=== PATIENT | female | born 1975 | race Caucasian/White ===

== ENCOUNTER 2017-07-15 06:22 | Inpatient (IN) | payer BC ==
--- NOTE | 2017-07-09 11:57 | HP ---
Admitting History and Physical - Primary Care Physician PCP: Yobani Lo - Admission Chief Complaint: Left breast cancer with axillary node metastatic disease History of Present Illness: 41 year old premanapausal female with strong family H/O breast and ovarian cancer. She had a H/O bilateral breast augmentations with implants originally placed 1995 with exchange 2003 due to ruptures. The patient noticed a density towards the lateral aspect of left breast around 12/2016. mammogram and US showed suspicious left retroareolar calcifications and mutiple suspicious densities. 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 , left breast 2:00and 9:00 bx turned out to be benign. Breast MRI showed exstensive enhancement left breast , right negative She is S/P neoadjuvant chemotherapy. 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 06/2017 repeat breast MRI showed right breast birad 3 residual parenchymal enhancement, known residual enhancement left 3:00 retroareolar region birad 6 area of cancer , small residual enhancement 9:00 previously bx region, and decrease size of axillary node. 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 - Past Surgical History Past Surgical History: Yes: Hernia Repair (umbilical hernia incarcerated at 14 Bilateral breast augmentation 1995 replaced 2003 for ruptures bilateral myringotomies 1977) - Smoking History Smoking history: Former smoker Have you smoked in the past 12 months: Yes Aproximately how many cigarettes per day: 1 - Alcohol/Substance Use Hx Alcohol Use: Yes (socially) Home Medications - Allergies Allergies/Adverse Reactions: Allergies Allergy/AdvReac Type Severity Reaction Status Date / Time Penicillins Allergy Verified 07/09/17 12:02 silver Allergy Verified 07/09/17 12:03 [From Tegaderm AG Mesh] - Home Medications Home Medications (free text): proair HFA inhaler Family Disease History - Family Disease History Other Family History: mat 2nd cousin breast ca late 40's. mat [place] ovarian ca. mat GF CRC skin ca. mat GA mouth and throat ca. pat GF CRC. mat GA skin ca. mat x4 esophageal ca. pat [place] uterine ca cervical ca. pat lung ca Physical Examination Constitutional: Yes: Well Nourished Breast(s): Yes: Other (obviosus bilateral augmentation with ptotic D cup breast , on palpitation no longer canc feel any suspicious densities in left breast or axilla, right breast negative) Problem List - Problems (1) Breast cancer, left Code(s): C50.912 - MALIGNANT NEOPLASM OF UNSPECIFIED SITE OF LEFT FEMALE BREAST Qualifiers: Breast location: upper outer quadrant of breast Patient sex: female Assessment/Plan Bilateral mastectomies with left sentenel node biopsy, lymphoscintogram posssible axillary node dissection, needle localization x2 of left axillary nodes with reconstruction
[2017-07-10 10:31] VITALS: BMI 26.3
[2017-07-15] MEDS ORDERED: SCOPOLAMINE HYDROBROMIDE 1 PATCH PATCH.TD72 ONE (14:01)
[2017-07-15] MEDS ORDERED: DEXAMETHASONE SOD PHOSPHATE/PF 10 MG/ML SDV ONE (14:08)
[2017-07-15] MEDS ORDERED: MIDAZOLAM HCL 2 MG/2 ML SINGLE DOSE VIAL ONE (14:08)
[2017-07-15] MEDS ORDERED: BUPIVACAINE HCL/PF 2.5 MG/ML - 30 ML VIAL IJ ONE (14:09)
[2017-07-15] MEDS ORDERED: ceFAZolin SODIUM 1 GM VIAL ONE ×2 (14:15→15:08)
[2017-07-15] MEDS ORDERED: ISOSULFAN BLUE 10 MG/ML VIAL SQ ONE (14:16)
[2017-07-15] MEDS ORDERED: GENTAMICIN SO4 80 MG/2 ML VIAL ONE (14:16)
[2017-07-15] MEDS ORDERED: ONDANSETRON 4 MG/2 ML VIAL IVPUSH PRN ×2 (14:42→19:05)
[2017-07-15] MEDS ORDERED: ACETAMINOPHEN 325 MG TABLET (FP) PO PRN (14:42)
[2017-07-15] MEDS ORDERED: ZOLPIDEM TARTRATE 5 MG TABLET PO PRN (14:42)
[2017-07-15] MEDS ORDERED: HYDROmorphone HCL/PF 1 MG/ML VIAL (FOR PYXIS CHARGING ONLY) ONE ×2 (14:57)
[2017-07-15] MEDS ORDERED: PROPOFOL 20 ML ONE ×4 (14:57)
[2017-07-15] MEDS ORDERED: ROCURONIUM BROMIDE 50 MG/5 ML VIAL ONE (14:58)
[2017-07-15] MEDS ORDERED: SUCCINYLCHOLINE CHLORIDE 200 MG/10 ML VIAL ONE (14:58)
[2017-07-15] MEDS ORDERED: LIDOCAINE HCL 2% 100 MG/5 ML DISP.SYRIN ONE (15:04)
[2017-07-15] MEDS ORDERED: ONDANSETRON 4 MG/2 ML VIAL ONE ×3 (15:08→19:34)
[2017-07-15] MEDS ORDERED: DEXAMETHASONE SOD PHOSPHATE 4 MG/1 ML VIAL ONE ×2 (15:08→18:24)
--- NOTE | 2017-07-15 18:41 | OP ---
Operative Note - Note: Operative Date: 07/15/17 Pre-Operative Diagnosis: left breast cancer Operation: bilateral mastectomy with left sentinel lymph node biopsy, bilateral breast reconstruction with alloderm/tissue expanders Surgeon: Tera Rosales Ios Programmer: Fina Nevarez Anesthesiologist/GENERAL NEUROLOGIST: Jhonny Zee Anesthesia: General Estimated Blood Loss (mls): 100 Drains & Tubes with Location: 19French blakmore drains Fluid Volume Replaced (mls): 900 Operative Report Dictated: Yes
[2017-07-15] MEDS: FAMOTIDINE 20 MG TABLET PO SCH (21:53)
[2017-07-15] MEDS: PANTOPRAZOLE 20 MG TABLET (FP) PO SCH (21:53)
[2017-07-15] MEDS: diazePAM 5 MG TABLET PO SCH (21:54)
[2017-07-15] MEDS: traMADol HCL 50 MG TABLET PO SCH (22:25)
[2017-07-16] MEDS: CLINDAMYCIN 300 MG PREMIX IVPB 300 MG/50 ML BAG IVPB SCH ×4 (02:12→17:04)
[2017-07-16] MEDS: traMADol HCL 50 MG TABLET PO SCH ×5 (03:11→21:56)
[2017-07-16] MEDS: oxyCODONE HCL 5 MG TABLET PO PRN ×6 (03:11→20:49)
[2017-07-16] MEDS: ACETAMINOPHEN 325 MG TABLET (FP) PO SCH ×5 (03:12→17:04)
--- NOTE | 2017-07-16 06:57 | OP ---
DATE OF OPERATION: 07/15/2017 PREOPERATIVE DIAGNOSIS: Left breast multicentric breast cancer. POSTOPERATIVE DIAGNOSIS: Left breast multicentric breast cancer. PROCEDURE PERFORMED: Bilateral total mastectomies through a Knight reduction pattern incision with left axillary sentinel lymph node biopsy and bilateral nitroglycerin distributor reconstruction and AlloDerm. PRIMARY SURGEON: Jesus Powell M.D. EARLY CHILDHOOD SPECIAL EDUCATOR: ROBERT Astudillo Primary surgeon for the bilateral nitroglycerin distributor reconstruction and AlloDerm is Dr. Jesus Rosales, with his health assistant ROBERT Harden. ANESTHESIA: General endotracheal anesthesia. ESTIMATED BLOOD LOSS: About 120 mL. COMPLICATIONS: There were no complications. INDICATIONS: Briefly, the patient is a 41-year-old , premenopausal white female with a strong family history with her maternal great aunt who from ovarian cancer and her maternal 2nd cousin who had breast cancer in her late 40s. There is also other cancer in the family. The patient was found to have suspicious findings in the lateral left breast in December 2016, and has a history of bilateral augmentation implants. There were multiple densities in the left breast at the 2 and 3 o'clock regions, as well as a suspicious left axillary lymph node. The left breast biopsies came back with invasive duct cancer, and she was found to have metastatic lower left axillary lymph node and also an intramammary lymph node towards the upper outer aspect of the left breast, which were both biopsied and positive for metastatic disease. MRI showed extensive cancer in the left breast, but the right breast was negative. The cancer was ER positive, MN negative and HER-II/DAKOTA positive, and she underwent neoadjuvant chemotherapy with TCHP, and followup MRI just showed some minimal residual enhancement to the left breast 3 and 9 o'clock regions. The patient was advised on undergoing a mastectomy on the left side, and due to the proximity to the nipple was advised to remove the nipple and decided to undergo prophylactic total mastectomy on the right side at the same sitting. She was advised of the need for a sentinel lymph node biopsy and possible axillary lymph node dissection. She was seen by the plastic surgeon preoperatively, and decided to go forward with bilateral nitroglycerin distributor reconstructions since she will need radiation on the left chest wall postoperatively. DESCRIPTION OF PROCEDURE: The patient was brought in for the procedure on July 15, 2017. She underwent lymphoscintigraphy at [facility] prior to the surgery, with periareolar injections of technetium-99. She had needle localizations of the intramammary and left lower axillary lymph node, which had been biopsied prior to the chemotherapy. She was then brought to the [place] holding area, and in the holding area, site verification was made and informed consent was obtained. She was seen by Dr. Rosales, who marked the patient preoperatively. She underwent bilateral prepectoral nerve blocks for postoperative pain control, and was brought into the operating room and laid on the OR table in the supine position. Venodynes were placed on the lower extremities prior to induction. She did receive 1 g of Ancef prior to incision, with the KNOWN PENICILLIN ALLERGY, but had no reaction. She was given general endotracheal anesthesia. Both breasts were sterilely prepped and draped in the usual fashion. Then 3 mL of Lymphazurin blue was injected intradermally, around the periareolar region of the left breast nipple-areolar complex. The sentinel lymph node biopsy was first performed. We first remained the intramammary lymph node with needle localization towards the upper outer aspect of the left breast over the implant. This was removed with the wire intact. Specimen radiograph showed removal of the clip in question, and frozen section of this came back with just benign breast tissue with no huma seen anymore. An incision was made just below the hair-bearing area of the left axilla at this point, and dissection was undertaken, and the wire was removed with the surrounding lymph nodes, but specimen radiograph did not show any clip in that initial specimen. These had no significant radioactive count and were sent to Pathology as non-sentinel lymph nodes, in formalin. Using the Navigator probe, I was able to find 2 other hot nodes, labeled sentinel lymph node number 2 and 3, with 10-second gamma counts of 2513 and 4111. The 3rd specimen did have the clip, which was seen within the node. All 3 sentinel nodes were sent for frozen section and came back negative. No other blue or hot nodes were found and background count was 46 after removal of these 3 sentinel nodes and the non-sentinel lymph nodes. Hemostasis was achieved. At this point the left mastectomy was performed through a Knight-pattern reduction incision, removing the nipple-areolar complex. Skin flaps were raised superiorly to the level of the clavicle, medially to the level of the sternum, laterally to the level of the latissimus and inferiorly below the level of the inframammary fold. The breast was taken off the pectoralis major muscle, after removing the prior augmentation implant. Electrocautery was used to remove the breast off the muscle from inferomedial to superolateral. It was completely removed intact and oriented with a long-lateral and short-superior surgery. Specimen radiograph of the breast showed removal of the remaining clips in the left breast. A separate anterior margin was taken just on the upper skin flap and sent to Pathology as anterior margin with suture marking the biopsy cavity side. Hemostasis was achieved and the wound was copiously irrigated with warm sterile saline. The breast was placed in formalin, after the specimen radiograph, to be sent to Pathology. At this point, gloves, gowns and instruments were changed, and the right breast was approached. Again, using a Knight-pattern reduction mastopexy incision, the nipple-areolar complex was completely removed and a skin flap was raised superiorly to the level of the clavicle, medially to the level of the sternum, laterally to the level of the latissimus and inferiorly below the level of the inframammary fold. The breast was taken down off the pectoralis major muscle, after removing the prior augmentation implant. The breast was taken down off the muscle from inferior-medial to superior-lateral, using electrocautery. The specimen with the breast and nipple was removed and oriented with a long-lateral and short-superior suture, and weighed to allow for an appropriate cosmetic result, placed in formalin and sent to Pathology as "right total mastectomy." Hemostasis was achieved and the wound was copiously irrigated with warm sterile saline. At this point Dr. Rosales became the primary surgeon for the bilateral augmentation implants placed in the subpectoral location using AlloDerm to allow for ease in expansion. Two Shane drains were placed around each implant, one on each side, and brought through separate stab incisions on the lateral skin flap and secured in place using 3-0 nylon suture. The wounds were all closed by Plastic Surgery using interrupted 3-0 deep dermal PDS suture and a running 4-0 subcuticular PDS suture. The axillary wound was closed in a similar fashion, and Dermabond was placed over the skin, since SHE HAD AN ADHESIVE ALLERGY. Compressive dressing and bra were placed over the patient. We did use the Spy skin perfusion device, which showed good bilateral skin perfusion after the mastectomy as well as after the implant reconstruction. The patient was extubated at the end of the case and brought to the postanesthesia care unit in stable condition. She will be admitted postoperatively for pain management and wound management. Estimated blood loss was about 120 mL, and she was hemodynamically stable throughout. JESUS POWELL M.D. [id number]
[2017-07-16] MEDS: HEPARIN NA (PORCINE) 5,000 UNITS/ML 1ML VIAL SQ SCH ×2 (07:52→20:49)
[2017-07-16] MEDS: DEXTROSE 5%-0.45% SALINE 1,000 ML IV SCH ×2 (08:26→15:21)
[2017-07-16] MEDS: LACTATED RINGERS SOLUTION 1,000 ML IV SCH ×2 (08:26→20:42)
[2017-07-16 09:00] LABS: HEMATOCRIT 32.3 % (32.4-45.2); HEMOGLOBIN 10.9 GM/dl (10.7-15.3); MCH 35.1 pg (25.7-33.7); MCHC 33.9 g/dl (32.0-36.0); MEAN CELL VOLUME 103.5 fl (80-96); MEAN PLT VOLUME 7.3 fl (7.5-11.1); PLATELET COUNT 210 K/MM3 (134-434); RBC 3.12 M/mm3 (3.60-5.2); RDW 12.7 % (11.6-15.6); WHITE BLOOD COUNT 4.9 K/mm3 (4.0-10.8)
[2017-07-16] MEDS: diazePAM 5 MG TABLET PO SCH ×2 (09:08→21:55)
[2017-07-16] MEDS: PANTOPRAZOLE 20 MG TABLET (FP) PO SCH ×2 (09:09→21:57)
[2017-07-16] MEDS: FAMOTIDINE 20 MG TABLET PO SCH ×2 (09:10→21:57)
--- NOTE | 2017-07-16 09:12 | PN ---
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 POD #1 History of Present Illness: patient is eating, no nausea or vomiting,pain managed with currrent protocol - Current Medication List Current Medications: Active Medications Acetaminophen (Tylenol -) 650 mg PO Q6HPO [facility] Last Admin: 07/16/17 08:26 Dose: Not Given Diazepam (Valium -) 5 mg PO BID [facility] Last Admin: 07/15/17 21:54 Dose: Not Given Famotidine (Pepcid -) 20 mg PO BID [facility] Last Admin: 07/15/17 21:53 Dose: 20 mg Heparin Sodium (Porcine) (Heparin -) 5,000 unit SQ BID@0800,2000 [facility] Last Admin: 07/16/17 07:52 Dose: 5,000 unit Dextrose/Sodium Chloride (D5-1/2ns -) 1,000 mls @ 100 mls/hr IV ASDIR [facility] Last Admin: 07/16/17 08:26 Dose: Not Given Clindamycin Phosphate (Cleocin 300 Mg Premix Ivpb) 300 mg in 50 mls @ 100 mls/ hr IVPB Q8H-IV [facility] Last Admin: 07/16/17 08:26 Dose: Not Given Lactated Ringer's (Lactated Ringers Solution) 1,000 mls @ 75 mls/hr IV ASDIR [facility] Last Admin: 07/16/17 08:26 Dose: Not Given Ondansetron HCl (Zofran Injection) 4 mg IVPUSH Q6H PRN PRN Reason: NAUSEA AND/OR VOMITING Oxycodone HCl (Roxicodone -) 5 mg PO Q4H PRN PRN Reason: PAIN LEVEL 1-5 Last Admin: 07/16/17 07:47 Dose: 5 mg Oxycodone HCl (Roxicodone -) 10 mg PO Q4H PRN PRN Reason: PAIN LEVEL 6-10 Pantoprazole Sodium (Protonix -) 20 mg PO BID [facility] Last Admin: 07/15/17 21:53 Dose: 20 mg Tramadol HCl (Ultram -) 50 mg PO Q6H [facility] Last Admin: 07/16/17 08:25 Dose: Not Given Zolpidem Tartrate (Ambien -) 5 mg PO HS PRN PRN Reason: Insomnia - Objective Vital Signs: Vital Signs Temperature 98.3 F 07/16/17 04:00 Pulse Rate 57 L 07/16/17 04:00 Respiratory Rate 18 07/16/17 04:00 Blood Pressure 99/54 07/16/17 04:00 O2 Sat by Pulse Oximetry (%) 100 07/16/17 08:03 Constitutional: Yes: No Distress Breast(s): Yes: Other (Flaps viable incision intact drains inplace and funtioning some echymosis bilaterally) Problem List - Problems (1) Breast cancer, left Code(s): C50.912 - MALIGNANT NEOPLASM OF UNSPECIFIED SITE OF LEFT FEMALE BREAST Qualifiers: Breast location: upper outer quadrant of breast Patient sex: female Assessment/Plan continue current pain management protocol spirometry OOb SCD whiile in bed ,heparin SQ IV antibiotics Plan for discharge tomorrow CBC pending
--- NOTE | 2017-07-16 12:06 | PN ---
Progress Note, Physician Chief Complaint: Pt. pain controlled, no GA complaints. - Current Medication List Current Medications: Active Medications Acetaminophen (Tylenol -) 650 mg PO Q6HPO [facility] Last Admin: 07/16/17 11:42 Dose: 650 mg Diazepam (Valium -) 5 mg PO BID [facility] Last Admin: 07/16/17 09:08 Dose: 5 mg Famotidine (Pepcid -) 20 mg PO BID [facility] Last Admin: 07/16/17 09:10 Dose: 20 mg Heparin Sodium (Porcine) (Heparin -) 5,000 unit SQ BID@0800,2000 [facility] Last Admin: 07/16/17 07:52 Dose: 5,000 unit Dextrose/Sodium Chloride (D5-1/2ns -) 1,000 mls @ 100 mls/hr IV ASDIR [facility] Last Admin: 07/16/17 08:26 Dose: Not Given Clindamycin Phosphate (Cleocin 300 Mg Premix Ivpb) 300 mg in 50 mls @ 100 mls/ hr IVPB Q8H-IV [facility] Last Admin: 07/16/17 09:09 Dose: 100 mls/hr Lactated Ringer's (Lactated Ringers Solution) 1,000 mls @ 75 mls/hr IV ASDIR [facility] Last Admin: 07/16/17 08:26 Dose: Not Given Ondansetron HCl (Zofran Injection) 4 mg IVPUSH Q6H PRN PRN Reason: NAUSEA AND/OR VOMITING Oxycodone HCl (Roxicodone -) 5 mg PO Q4H PRN PRN Reason: PAIN LEVEL 1-5 Last Admin: 07/16/17 07:47 Dose: 5 mg Oxycodone HCl (Roxicodone -) 10 mg PO Q4H PRN PRN Reason: PAIN LEVEL 6-10 Last Admin: 07/16/17 11:46 Dose: 10 mg Pantoprazole Sodium (Protonix -) 20 mg PO BID [facility] Last Admin: 07/16/17 09:09 Dose: 20 mg Tramadol HCl (Ultram -) 50 mg PO Q6H [facility] Last Admin: 07/16/17 09:08 Dose: 50 mg Zolpidem Tartrate (Ambien -) 5 mg PO HS PRN PRN Reason: Insomnia - Objective Vital Signs: Vital Signs Temperature 98.3 F 07/16/17 04:00 Pulse Rate 57 L 07/16/17 04:00 Respiratory Rate 18 07/16/17 04:00 Blood Pressure 99/54 07/16/17 04:00 O2 Sat by Pulse Oximetry (%) 100 07/16/17 08:03 Constitutional: Yes: Well Nourished, No Distress, Calm Musculoskeletal: Yes: WNL Neurological: Yes: WNL, Alert, Oriented Labs: CBC, BMP 07/16/17 07:50 Assessment/Plan POD#1 s/p bilateral breast mastectomy under GA with PEC blocks. Doing well. D/C from anesthesia care.
--- NOTE | 2017-07-16 15:00 | SURG ---
Surgery Recreational Counselor Note Recreational Counselor: Fina Nevarez PA-C Date of Service: 07/15/17 Diagnosis: left breast cancer Procedure: bilateral mastectomy with left sentinel lymph node biopsy, bilateral breast reconstruction with alloderm/tissue gatehouse attendant I was present for the entirety of the operative procedure. For further detail, please refer to operative report. Visit type - Case Type Case Type: Scheduled Admission - Emergency Emergency Visit: No - New patient This patient is new to me today: Yes Date on this admission: 07/15/17
[2017-07-16] MEDS ORDERED: diphenhydrAMINE HCL 25 MG CAPSULE (FP) PO SCH (22:00)
[2017-07-17] MEDS: ACETAMINOPHEN 325 MG TABLET (FP) PO SCH ×2 (02:40→06:32)
[2017-07-17] MEDS: oxyCODONE HCL 5 MG TABLET PO PRN ×3 (02:41→10:59)
[2017-07-17] MEDS: CLINDAMYCIN 300 MG PREMIX IVPB 300 MG/50 ML BAG IVPB SCH ×2 (02:42→09:27)
[2017-07-17] MEDS: traMADol HCL 50 MG TABLET PO SCH ×2 (02:49→09:26)
[2017-07-17 06:52] VITALS: BP 91/55; PULSE 68; TEMP 98.9
[2017-07-17] MEDS: HEPARIN NA (PORCINE) 5,000 UNITS/ML 1ML VIAL SQ SCH (08:00)
[2017-07-17] MEDS: PANTOPRAZOLE 20 MG TABLET (FP) PO SCH (09:27)
[2017-07-17] MEDS: diazePAM 5 MG TABLET PO SCH (09:27)
[2017-07-17] MEDS: FAMOTIDINE 20 MG TABLET PO SCH (09:27)
--- NOTE | 2017-07-17 09:36 | PN ---
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#2 History of Present Illness: patient is using valium and oxycodone for pain eating no nausea OOb, ready for discharge today - Current Medication List Current Medications: Active Medications Acetaminophen (Tylenol -) 650 mg PO Q6HPO [facility] Last Admin: 07/17/17 06:32 Dose: 650 mg Diazepam (Valium -) 5 mg PO BID [facility] Last Admin: 07/17/17 09:27 Dose: 5 mg Diphenhydramine HCl (Benadryl -) 25 mg PO HS [facility] Last Admin: 07/16/17 21:55 Dose: 25 mg Famotidine (Pepcid -) 20 mg PO BID [facility] Last Admin: 07/17/17 09:27 Dose: 20 mg Heparin Sodium (Porcine) (Heparin -) 5,000 unit SQ BID@0800,2000 [facility] Last Admin: 07/16/17 20:49 Dose: 5,000 unit Dextrose/Sodium Chloride (D5-1/2ns -) 1,000 mls @ 100 mls/hr IV ASDIR [facility] Last Admin: 07/16/17 15:21 Dose: Not Given Clindamycin Phosphate (Cleocin 300 Mg Premix Ivpb) 300 mg in 50 mls @ 100 mls/ hr IVPB Q8H-IV [facility] Last Admin: 07/17/17 09:27 Dose: 100 mls/hr Lactated Ringer's (Lactated Ringers Solution) 1,000 mls @ 75 mls/hr IV ASDIR [facility] Last Admin: 07/16/17 20:42 Dose: Not Given Ondansetron HCl (Zofran Injection) 4 mg IVPUSH Q6H PRN PRN Reason: NAUSEA AND/OR VOMITING Oxycodone HCl (Roxicodone -) 5 mg PO Q4H PRN PRN Reason: PAIN LEVEL 1-5 Last Admin: 07/16/17 07:47 Dose: 5 mg Oxycodone HCl (Roxicodone -) 10 mg PO Q4H PRN PRN Reason: PAIN LEVEL 6-10 Last Admin: 07/17/17 06:32 Dose: 10 mg Pantoprazole Sodium (Protonix -) 20 mg PO BID [facility] Last Admin: 07/17/17 09:27 Dose: 20 mg Tramadol HCl (Ultram -) 50 mg PO Q6H [facility] Last Admin: 07/17/17 09:26 Dose: 50 mg Zolpidem Tartrate (Ambien -) 5 mg PO HS PRN PRN Reason: Insomnia - Objective Vital Signs: Vital Signs Temperature 98.9 F 07/17/17 06:00 Pulse Rate 68 07/17/17 06:00 Respiratory Rate 18 07/17/17 06:00 Blood Pressure 91/55 07/17/17 06:00 O2 Sat by Pulse Oximetry (%) 97 07/17/17 06:00 Constitutional: Yes: Well Nourished Breast(s): Yes: Other (flaps viable bilaterally incision intact,ADRIEN drains functioning dressing changed no infection or drainage some echymosis bilaterally ) Labs: CBC, BMP 07/16/17 07:50 Problem List - Problems (1) Breast cancer, left Code(s): C50.912 - MALIGNANT NEOPLASM OF UNSPECIFIED SITE OF LEFT FEMALE BREAST Qualifiers: Breast location: upper outer quadrant of breast Patient sex: female Assessment/Plan patient ready for discharge today follow up next week with Dr Rosales and Dr Wally mendoza showchloe cipro BID VNS
--- NOTE | 2017-07-17 09:43 | DS ---
Physical Examination Vital Signs: Vital Signs Temperature 98.9 F 07/17/17 06:00 Pulse Rate 68 07/17/17 06:00 Respiratory Rate 18 07/17/17 06:00 Blood Pressure 91/55 07/17/17 06:00 O2 Sat by Pulse Oximetry (%) 97 07/17/17 06:00 Constitutional: Yes: No Distress Breast(s): Yes: Other (bilateral flaps viable incision intact derrek drains functioning no infection or drainage) Labs: CBC, BMP 07/16/17 07:50 Discharge Summary Reason For Visit: LEFT BREAST CA Condition: Good - Instructions Diet, Activity, Other Instructions: Post Operative Instructions - [facility] We hope your recovery will be uneventful. For those of you who have been given general anesthesia, there is a possibility you might have some lightheadedness and possibly nausea. It is important that each patient, especially those who have had general anesthesia, follow these instructions, please: 1. Do NOT operate a motor vehicle for 24 hours. 2. Do NOT drink any alcoholic beverages for 24 hours. 3. Do NOT take any sedatives, narcotics, or tranquilizers for 24 hours unless specifically ordered by your surgeon. 4. Do NOT undertake any strenuous exercise or outside activity for 24 hours unless specifically permitted by your surgeon. 5. Eat light foods that are easy to digest. If you have any problems with nausea and vomiting, lie down and rest. If it continues, call your surgeon. 6. Call your surgeon AT ONCE if you have problems with: a. Bleeding b. Urinating c. Excessive pain or drainage d. Numbness If any problems occur, call your physician first. If you cannot reach him/her, call the Ambulatory Surgery Unit at [phone], or the Emergency Room at . Follow up with Drs. Lo / Sridhar in 7 days. Medication: Vicodin E-S OR Percocet 1-2 tablets every 4-6 hrs as needed for 5-7 days. Wound Care: Keep wound dry and clean for 48 hours. You may remove the dressing after 48 hours and may shower. Keep steri-strips in place until follow-up appointment No heavy lifting or strenuous activities. BREAST SURGERY INSTRUCTIONS Lupillo Lo M.D., VALE Lo M.D., FACS Wilda Waller M.D., FACS 1. Please call the office at to make a follow up appointment with your surgeon. This number can be also used for any urgent issues you may have. 2. Call us immediately if any of the following occur: *Bleeding from the incision or drain site (a small amount is normal) *Fever or chills *Redness and worsening tenderness around the surgical site *Drainage of pus or fluid from the incision or drain site 3. You may change the surgical dressing two (2) days after your surgery, and may shower then. If you have drains, you may shower after they have been removed, until then take a sponge bath. 4. It is normal for there to be some bruising and tenderness around the surgical site, and the breast may also be firm in this area. 5. Please wear a comfortable bra (sports or surgical bra) all day and all night until your first follow-up visit with your surgeon. 6. The pain medicine you have been prescribed may make you constipated; make sure you drink plenty of water. You may use an over the counter laxative if needed. 7. You may resume your normal diet after surgery, although you may want to avoid rich foods for the first twenty-four (24) hours after surgery. Alcoholic drinks should be avoided while taking the prescribed pain medicine. 8. You may resume normal activities as long as there is no discomfort, but do not do upper body exercises until after your follow-up appointment. Do not lift anything heavier than a large phone book. You may resume driving once you have stopped taking the prescribed pain medicine and feel comfortable doing arm movements. NO SHOWER,WEAR BRA, EMPTY AND RECORD DERREK OUTPUT TWICE DAILY Referrals: Yobani Lo MD [Staff Physician] - Tera Rosales MD [Staff Physician] - Disposition: HOME - Home Medications Comprehensive Discharge Medication List: Ambulatory Orders Acetaminophen [Tylenol] 650 mg PO ASDIR PRN 07/10/17 Diphenhydramine [Benadryl Capsule -] 50 mg PO HS 07/10/17 Famotidine [Pepcid] 20 mg PO BID 07/10/17 Lansoprazole [Prevacid] 15 mg PO BID 07/10/17 Ciprofloxacin HCl [Cipro] 500 mg PO BID #20 tablet 07/17/17 Diazepam [Valium] 5 mg PO Q8H PRN #30 tablet MDD 3 07/17/17 Oxycodone HCl 5 mg PO Q4HWA PRN #30 tablet MDD 6 07/17/17
--- NOTE | 2017-07-18 19:20 | PATH ---
Surgical Pathology Report Patient Name: MARSHA MALCOLM Med. Rec. #: [id number] /Age/Gender: 1975 (Age: 41) / F Account: [id number] Location: [facility] Taken: 07/15/2017 Received: 07/15/2017 Reported: 07/18/2017 Physicians: Yobani Lo M.D. Specimen(s) Received A: LEFT BREAST SENTINAL NODE #1(299 COUNT) B: LEFT BREAST SENTINAL NODE #2 (2513 COUNT) C: LEFT BREAST SENTINAL NODE #3 (4117 count) D: LEFT BREAST NON SENTINAL NODES E: LEFT BREAST ANTERIORIOR MARGIN F: LEFT BREAST SUTURE MUSTAFA G: RIGHT BREAST SUTURE MUSTAFA H: BILATERAL BREAST IMPLANTS Clinical History Status post neoadjuvant chemotherapy, known positive lymph node pre-chemotherapy. Intraoperative Consult Diagnosis A. Left breast sentinel node #1, frozen section and touch prep: Benign breast tissue. No lymph node identified on major account representative frozen section or touch prep. Christian Lucas M.D., 07/15/2017 B. Left breast sentinel node #2, touch prep: Benign lymph node. Christian Lucas M.D., 07/15/2017 C. Left breast sentinel node #3, touch prep: Benign lymph node. Christian Lucas M.D., 07/15/2017 Final Diagnosis A. LYMPH NODE, LEFT AXILLARY SENTINEL #1 EXCISION: ONE BENIGN INTRAMAMMARY LYMPH NODE (0/1) BY STANDARD HEMATOXYLIN AND EOSIN STAIN (MULTIPLE LEVELS EXAMINED) AND AE1/3 IMMUNOSTAIN. AREA OF SCLEROSIS SUGGESTIVE OF PRIOR BIOPSY SITE OR RESOLVED TUMOR BED PRESENT. REMAINING BREAST TISSUE WITH FIBROCYSTIC CHANGES AND INCLUDES THE CHANGE, STROMAL FIBROSIS, DUCTAL DILATATION, AND CYSTIC APOCRINE METAPLASIA. B. LYMPH NODE, LEFT AXILLARY SENTINEL NODE #2, EXCISION: ONE BENIGN LYMPH NODE (0/1) BY STANDARD HEMATOXYLIN AND EOSIN STAIN (MULTIPLE LEVELS EXAMINED) AND AE1/3 IMMUNOSTAIN. C. LYMPH NODE, LEFT AXILLARY SENTINEL NODE #3, EXCISION: ONE BENIGN LYMPH NODE (0/1) BY STANDARD HEMATOXYLIN AND EOSIN STAIN (MULTIPLE LEVELS EXAMINED) AND AE1/3 IMMUNOSTAIN. D. LYMPH NODES, LEFT AXILLARY, EXCISION: NO METASTATIC CARCINOMA IDENTIFIED IN 12 LYMPH NODES (0/12). E. LEFT BREAST, ANTERIOR MARGIN, EXCISION: BENIGN FIBROFATTY TISSUE. F. LEFT BREAST, MASTECTOMY: BENIGN BREAST TISSUE WITH MULTIPLE FIBROADENOMATA, ALONG WITH FIBROCYSTIC CHANGES INCLUDING USUAL DUCTAL HYPERPLASIA, STROMAL FIBROSIS, DUCTAL DILATATION, AND CYSTIC AND CYSTIC APOCRINE METAPLASIA. FIBROUS TISSUE CONSISTENT WITH BREAST IMPLANT CAPSULE PRESENT. NO RESIDUAL CARCINOMA IDENTIFIED. G. RIGHT BREAST, MASTECTOMY: SCLEROSING ADENOSIS WITH ASSOCIATED CAUSE PATIENT, ARISING IN A BACKGROUND OF FIBROCYSTIC CHANGES INCLUDING COLUMNAR CELL CHANGE, FIBROADENOMATOID CHANGE, STROMAL FIBROSIS, DUCTAL DILATATION, AND ASSOCIATED CALCIFICATION. FIBROUS TISSUE CONSISTENT WITH BREAST IMPLANT CAPSULE PRESENT. H. SOLE POLISHER, BILATERAL BREAST, REMOVAL: TWO BREAST IMPLANTS (GROSS ONLY). Comment: Also see Slide Review [id number]. Comments Breast Invasive Carcinoma: Surgical Pathology Cancer Case Summary Based on AJCC/UICC TNM, 7th edition Procedure _X__ Total mastectomy (including nipple and skin) Lymph Node Sampling (select all that apply) (required only if lymph nodes are present in the specimen) _X__ [place] lymph node(s) _X__ Axillary dissection (partial or complete dissection) _X__ Lymph nodes present within the breast specimen (ie, intramammary lymph nodes) Specimen Laterality _X__ Left Tumor Size: Size of Largest Invasive Carcinoma _X__ No residual invasive carcinoma Tumor Focality _X__ No residual invasive carcinoma Macroscopic and Microscopic Extent of Tumor Skin _X__ Invasive carcinoma does not invade into the dermis or epidermis Nipple _X__ DCIS does not involve the nipple epidermis Ductal Carcinoma In Situ (DCIS) _X__ No DCIS is present Histologic Type of Invasive Carcinoma : _X__ Invasive carcinoma of no special type (ductal, not otherwise specified) Histologic Grade: (Trilla Histologic Score) Tubular Differentiation _X__ No residual invasive carcinoma Nuclear Pleomorphism _X__ No residual invasive carcinoma Mitotic Rate _X__ No residual invasive carcinoma Overall Grade _X__ No residual invasive carcinoma after presurgical (neoadjuvant) therapy Margins _X__ Margins uninvolved by invasive carcinoma (required only if residual invasive carcinoma is present in specimen) Distance from closest margin: Not applicable (No residual carcinoma) _X__ Margins uninvolved by DCIS (required only if residual DCIS is present in specimen) Distance from closest margin: Not applicable (No residual carcinoma) Lymph-Vascular Invasion _X__ Not identified Lymph Nodes Total number of lymph nodes examined (sentinel and nonsentinel): 15 Number of sentinel lymph nodes examined: 3 Number of lymph nodes with macrometastases ( > 2 mm): 0 Number of lymph nodes with micrometastases (>0.2 mm to 2 mm and/or >200cells):0 Number of lymph nodes with isolated tumor cells (=0.2 mm and =200 cells): 0 Extranodal Extension _X__ Not applicable Pathologic Staging (pTNM) Primary Tumor (Invasive Carcinoma): ypT0 Regional Lymph Nodes (pN): ypN0 Biomarker Studies Results of ER and ND studies performed on a prior biopsy (Slide Review [id number]) at [facility] in [place], [place] are as follows: ER (clone [id number]): 80-90% nuclear staining with moderate intensity (Positive). ND ([id number]) : up to 25% nuclear staining weak to moderate intensity (Positive). Her2 IHC (EP3 from [employer], formerly known as [id number]): 3+ Positive Positive and negative controls (internal if applicable) show appropriate results. Formalin fixation and cold ischemic times are within current ASCO/CAP recommendations for ER, ND and Her2 testing. Electronically Signed Ge Lucas M.D. Gross Description A. Received fresh labeled "left breast sentinel node #1" is a 3.5 x 2.7 x 0.9 cm portion of yellow and scanlon fibrofatty tissue with blue discoloration. The specimen is accompanied by a localizing wire. Cut surface reveals yellow and scanlon tissue with no distinct lymph node identified. Touch preps are prepared. A major account representative portion is frozen and frozen the remainder is submitted in cassette FSA1. All of the remaining tissue is submitted in cassettes 2-5. B. Received fresh labeled "left breast sentinel node #2" is a 2.8 x 2.8 x 1.2 cm portion of yellow fatty tissue containing a 1.2 cm greatest dimension lymph node with a fatty hilum. Cut surface reveals no focal lesions. Touch imprints are prepared. The lymph node is sectioned and totally smooth in cassette B. C. Received fresh labeled "left breast sentinel node #3" is a 1.5 x 1.1 x 0.8 cm portion of fatty tissue containing a 0.8 cm in greatest dimension ovoid lymph node. Cut surface reveals a uniform surface with no lesion identified. Touch preps are prepared. The specimen is sectioned and totally submitted in a cassette C. D. Received in formalin labeled "left breast non-sentinel nodes" is a 6 x 3.5 x 2.5 cm aggregate of yellow fatty tissue with a localizing wire in place. Multiple possible lymph nodes are noted. All of the possible lymph nodes are submitted as follows: 1 through 4-one sectioned lymph node each cassette; 5 through 8-multiple lymph nodes each cassette. E. Received in formalin labelled "left breast anterior margin" is a 4.5 x 3.3 x 0.9 cm portion of yellow fibrofatty tissue with a suture marking one aspect indicated to be the biopsy cavity side. The opposite margin is inked blue. Sectioned and totally submitted in 6 cassettes. F. Received in formalin, labeled "left breast mastectomy," is a 409 gram, 18 x 22 x 4 cm. left mastectomy specimen with a short suture marking the superior aspect and a long suture marking the lateral aspect of the specimen, per the surgeon. There is a 12 x 10 cm triangular shaped portion of skin present which includes the nipple and areola at its apex. The areola shows blue discoloration. There is attached fibromembranous tissue at the inferior aspect of the deep margin suggestive of a breast implant capsule. The deep margin is inked black and the anterior soft tissue margin is inked blue. The specimen is serially sectioned from superior to inferior. Sectioning reveals yellow adipose tissue and ybarra fibrous tissue. A 0.8 cm in greatest dimension apparent fibroadenoma is present in the superior aspect of the breast. Elsewhere, vaguely nodular tissue is present but no grossly obvious invasive carcinoma is identified. Ectatic ducts are note. In area with a biopsy clip is identified in the retroareolar region. [employer] Cler[employer] Supervisor sections are submitted in 12 cassettes as follows: 1 through 3-nipple and retroareolar tissue; 4-retroareolar tissue with biopsy clip; 5 through 8-additional periareolar tissue; 9 and 10-fibroadenoma; 11-deep margin with fibromembranous tissue; 12-deep margin towards lateral aspect with ectatic duct material. G. Received in formalin, labeled "right breast mastectomy," is a 307 gram, 15 x 14.5 x 3.5 cm. right mastectomy specimen with a short suture marking the superior aspect and a long suture marking the lateral aspect of the specimen, per the surgeon. There is an 11 x 9.5 cm ellipse of skin with deep nipple and areola at its apex present. Fibromembranous tissue is present at the inferior aspect of the deep margin. The deep margin is inked black and the anterior soft tissue margin is inked blue. An additional 9 x 3.5 x 1.3 cm portion of yellow fatty tissue is present within the specimen container The specimen is serially sectioned from superior to inferior. Sectioning reveals ybarra fibrous tissue and yellow adipose tissue. Mail Clerks Supervisor sections are submitted in 10 cassettes as follows: 1 and 2-nipple; 3-upper outer quadrant; 4-lower outer quadrant; 5-upper inner quadrant; 6-lower inner quadrant; 7 through 9-central breast tissue; 10-additional tissue from specimen container. H. Received dry labeled "bilateral breast implants" are 2 gel filled plastic sacs consistent with breast implants. Each of these is designated [place] 380 cc. This is for gross identification only. [facility]/07/15/2017 [facility]/07/15/2017
== END 2017-07-17 13:00 | disposition home or self-care (01) | DRG 580 ==
LOC: FM/S 06:22
PROVIDERS: ADMIT Surgery Surgical Oncology; ATTEND Surgery Surgical Oncology
PROC: 0HTV0ZZ Resection of Bilateral Breast, Open Approach (ICD-10-PCS; principal; 2017-07-15 15:39)
PROC: 07B60ZX Excision of Left Axillary Lymphatic, Open Approach, Diagnostic (ICD-10-PCS; 2017-07-15 15:39)
PROC: 0HHV0NZ Insertion of Tissue Expander into Bilateral Breast, Open Approach (ICD-10-PCS; 2017-07-15 15:39)
PROC: 0KX Muscles, Transfer (ICD-10-PCS; 2017-07-15 15:39)
DX: C50.412 Malignant neoplasm of upper-outer quadrant of left female breast (principal); C77.3 Secondary and unspecified malignant neoplasm of axilla and upper limb lymph nodes; Z17.0 Estrogen receptor positive status [ER+]
CPT/HCPCS: 19281; 19286; 36415; 78195-TC; 84703; 85027; 94010; 94760; A9541; J1644

== ENCOUNTER 2017-09-22 12:04 | Inpatient (IN) | payer BC ==
[2017-09-22] MEDS ORDERED: VANCOMYCIN 1 GRAM (PRE-DOCKED) 1,000 MG/250 ML BAG IVPB ONE (13:10)
[2017-09-22] MEDS ORDERED: HYDROmorphone HCL 2 MG TABLET PO PRN (13:11)
[2017-09-22] MEDS ORDERED: ONDANSETRON 8 MG TABLET (FP) PO PRN (13:13)
[2017-09-22] MEDS ORDERED: LOPERAMIDE HCL 2 MG CAPSULE PO PRN (13:15)
--- NOTE | 2017-09-22 13:25 | HP ---
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 She is currently on projetta and herceptin. She required a small wound revision left breast by Dr King on . . Sutures were removed 09/17/2017 and at that time there was right breast redness and she was started on levaquin for a cellulitis. On 09/19/2017 when she returned to plastics for suture removal left breast redness/ cellulitis was noted with petichiae and levaquin was changed to clindamycin. She reports some night sweats but no fever. She saw Dr Lo in office today and was admitted for left breast cellulitis and petichia. Additionally she was receiving Physical therapy for left arm banding and paresthesia which has shown some improvement with the PT. She does have a history of bilateral augmentation with implants 1995 and mutiplle ruptures and replacements with last exchange 2003 prior to her cancer surgery. History Source: Patient Limitations to Obtaining History: No Limitations - Past Medical History Pulmonary: Yes: Asthma Rheumatology: Yes: Rheumatoid Arthritis (?autoimmune dz) Additional Past Medical History: chromosone duplication syndrome josr zdz - Past Surgical History Past Surgical History: Yes: Hernia Repair (umbilical hernia incarcerated at 14 Bilateral breast augmentation 1995 replaced 2003 for ruptures bilateral myringotomies 1977), Mastectomy (Bilateral mastectomies left breast cancer) Additional Past Surgical History: Bilateral augmentation 1995 requiring mutiple replacements for ruptures last exchange being 2003. - Smoking History Smoking history: Former smoker Have you smoked in the past 12 months: Yes Aproximately how many cigarettes per day: 1 If you are a former smoker, when did you quit?: 01/21 - Alcohol/Substance Use Hx Alcohol Use: Yes (socially) Home Medications - Allergies Allergies/Adverse Reactions: Allergies Allergy/AdvReac Type Severity Reaction Status Date / Time adhesive Allergy Severe BLISTERS,HI Verified 07/10/17 09:59 VES,ITCHING latex Allergy Severe Itching,IRR Verified 07/10/17 09:57 ITATED mold Allergy Severe THROAT Verified 07/10/17 09:57 SWELLING/ITCHING Penicillins Allergy Severe THROAT Verified 07/10/17 09:56 SWELLING/ITCHING CHEESE AdvReac Uncoded 09/22/17 13:26 TEGADERM AdvReac Uncoded 09/22/17 13:26 - Home Medications Home Medications: Ambulatory Orders Diphenhydramine [Benadryl Capsule -] 50 mg PO HS 07/10/17 Famotidine [Pepcid] 20 mg PO BID 07/10/17 Loperamide HCl [Imodium -] 2 mg PO Q8H 09/22/17 Ondansetron HCl [Zofran] 4 mg PRN 09/22/17 Family Disease History - Family Disease History Family Disease History: CA: Mother (breast ca 55), Brother (CLL), Sister ( breast ca 45) Other Family History: nephew lymphoma Physical Examination Constitutional: Yes: No Distress Breast(s): Yes: Other (Bilateral Bilateral dennis pattern reduction incisions with expanders and steristrips in place left due to small revision. Redness inferior aspect left breast with some petichiae axillary banding left . Right breast minimal resolvng erythema lowere inner aspect.) Problem List - Problems (1) Cellulitis of left breast Code(s): N61.0 - MASTITIS WITHOUT ABSCESS Assessment/Plan CBC with diff, chemistry Infectious disease consult Vancomycin 1 gram x once dilaudid 2mg prn bacid probiotic immodium prn plastic consult Bilateral breast US
[2017-09-22 13:32] LABS: BASO % 0.6 % (0-2.0); EOS % 5.9 % (0-4.5); HEMATOCRIT 34.6 % (32.4-45.2); HEMOGLOBIN 11.7 GM/dl (10.7-15.3); LYMPH % 46.2 % (8-40); MCH 31.9 pg (25.7-33.7); MCHC 33.7 g/dl (32.0-36.0); MEAN CELL VOLUME 94.6 fl (80-96); MEAN PLT VOLUME 7.7 fl (7.5-11.1); MONO % 6.8 % (3.8-10.2); NEUT % 40.5 % (42.8-82.8); PLATELET COUNT 221 K/MM3 (134-434); RBC 3.66 M/mm3 (3.60-5.2); RDW 11.8 % (11.6-15.6); WHITE BLOOD COUNT 3.9 K/mm3 (4.0-10.8)
[2017-09-22 13:38] LABS: ALK PHOS 58 U/L (32-92); ANION GAP 7 (8-16); BILIRUBIN,TOTAL 0.6 mg/dl (0.2-1.0); BLOOD UREA NITROGEN 17 mg/dl (7-18); CALCIUM 9.2 mg/dl (8.4-10.2); CHLORIDE 104 mmol/L (98-107); CO2 29 mmol/L (22-28); CREATININE 0.8 mg/dl (0.6-1.3); GLUCOSE,RANDOM 116 mg/dl (74-106); POTASSIUM 3.5 mmol/L (3.5-5.1); SGOT/AST 15 U/L (10-42); SGPT/ALT 14 U/L (10-40); SODIUM 140 mmol/L (136-145); TOT PROT 6.6 g/dl (6.4-8.3)
[2017-09-22 14:12] VITALS: BMI 26.3
--- NOTE | 2017-09-22 18:17 | PN ---
Progress Note (short form) - Note Progress Note: ID Consult dictated Cellulitis PCN allergy "Red man syndrome" secondary to Vancomycin Benadryl ordered Head and neck rash improving Continue vancomycin with benadryl pre-medication
[2017-09-23] MEDS: diphenhydrAMINE HCL 25 MG CAPSULE (FP) PO SCH ×2 (02:21→14:02)
[2017-09-23] MEDS: VANCOMYCIN 1 GRAM (PRE-DOCKED) 1,000 MG/250 ML BAG IVPB SCH ×2 (03:02→14:05)
[2017-09-23] MEDS ORDERED: ONDANSETRON 4 MG TABLET PO PRN (08:33)
[2017-09-23] MEDS: LACTOBACILLUS ACIDOPHILUS 1 TABLET PO SCH (09:34)
--- NOTE | 2017-09-23 09:59 | PN ---
Progress Note, Physician History of Present Illness: No c/o breast pain No c/o fever/ chills Tolerated second dose of vancomycin after benadryl premedication - Current Medication List Current Medications: Active Medications Diphenhydramine HCl (Benadryl -) 25 mg PO BID@0200,1400 [facility] Last Admin: 09/23/17 02:21 Dose: 25 mg Hydromorphone HCl (Dilaudid -) 2 mg PO Q6H PRN PRN Reason: PAIN LEVEL 1-5 Vancomycin HCl (Vancomycin (Pre-Docked)) 1,000 mg in 250 mls @ 166.667 mls/hr IVPB BID@0230,1430 [facility]; Protocol Last Admin: 09/23/17 03:02 Dose: 166.667 mls/hr Lactobacillus Acidophilus (Bacid -) 1 tab PO DAILY [facility] Last Admin: 09/23/17 09:34 Dose: 1 tab Loperamide HCl (Imodium -) 2 mg PO Q8H PRN PRN Reason: DIARRHEA Ondansetron HCl (Zofran -) 4 mg PO Q8H PRN PRN Reason: NAUSEA AND/OR VOMITING - Objective Vital Signs: Vital Signs Temperature 97.8 F 09/23/17 06:00 Pulse Rate 65 09/23/17 06:00 Respiratory Rate 16 09/23/17 08:09 Blood Pressure 109/73 09/23/17 06:00 O2 Sat by Pulse Oximetry (%) 98 09/23/17 08:09 Constitutional: Yes: No Distress Eyes: Yes: Conjunctiva Clear Cardiovascular: Yes: Regular Rate and Rhythm, S1, S2 Respiratory: Yes: CTA Bilaterally Gastrointestinal: Yes: Normal Bowel Sounds, Soft. No: Tenderness Breast(s): Yes: Other (small residual area of erythema L breast outer , lower quadrant) Labs: CBC, BMP 09/22/17 12:58 09/22/17 12:58 Assessment/Plan Breast cellulitis PCN allergy S/P " red man syndrome" secondary to vancomycin Await c/s Continue vancomycin with benadryl premedication
--- NOTE | 2017-09-23 11:08 | PN ---
Progress Note, Physician Chief Complaint: Left breast cellulitis S/P bilateral mastectomies for left breast cancer left revision with bilateral breast cellulitis History of Present Illness: Patient had reaction to vancomycin "Red man syndrome" and was treated with benadryl with improved symptoms, pain managed with dilaudid prn, CBC 3.9 from 09/22/2017, CBC today pending and blood cultures from 09/22/2017.Bilateral breast us 09/22/2017 showed small amount of fluid left side but not enough to aspirate according to Dr Lo. - Current Medication List Current Medications: Active Medications Diphenhydramine HCl (Benadryl -) 25 mg PO BID@0200,1400 [facility] Last Admin: 09/23/17 02:21 Dose: 25 mg Hydromorphone HCl (Dilaudid -) 2 mg PO Q6H PRN PRN Reason: PAIN LEVEL 1-5 Vancomycin HCl (Vancomycin (Pre-Docked)) 1,000 mg in 250 mls @ 166.667 mls/hr IVPB BID@0230,1430 [facility]; Protocol Last Admin: 09/23/17 03:02 Dose: 166.667 mls/hr Lactobacillus Acidophilus (Bacid -) 1 tab PO DAILY [facility] Last Admin: 09/23/17 09:34 Dose: 1 tab Loperamide HCl (Imodium -) 2 mg PO Q8H PRN PRN Reason: DIARRHEA Ondansetron HCl (Zofran -) 4 mg PO Q8H PRN PRN Reason: NAUSEA AND/OR VOMITING - Objective Vital Signs: Vital Signs Temperature 97.8 F 09/23/17 06:00 Pulse Rate 65 09/23/17 06:00 Respiratory Rate 16 09/23/17 08:09 Blood Pressure 109/73 09/23/17 06:00 O2 Sat by Pulse Oximetry (%) 98 09/23/17 08:09 Constitutional: Yes: No Distress Breast(s): Yes: Other (Dr Jackson was also present during exam Bilateral erythema with mild petichiae left more than right improving, patient is afebrile ) Labs: CBC, BMP 09/22/17 12:58 09/22/17 12:58 Problem List - Problems (1) Cellulitis of left breast Code(s): N61.0 - MASTITIS WITHOUT ABSCESS Assessment/Plan continue IV vancomycin cont dilaudid prn CBC pending blood cultures pending
--- NOTE | 2017-09-23 11:30 | CONS ---
INFECTIOUS DISEASE CONSULTATION DATE OF CONSULTATION: DATE OF DICTATION: 09/23/2017 The patient is a 41-year-old female evaluated for breast cellulitis. Patient was diagnosed with left breast invasive ductal carcinoma with axillary lymph node involvement. She underwent a bilateral mastectomy on July 15, 2017, with placement of bilateral tissue expanders. She reports that a wound revision was performed in late August. Sutures were removed on or about September 17, 2017. She developed erythema involving the left lower outer quadrant as well as the right breast inner upper and lower quadrants. She was evaluated as an outpatient, was felt to have cellulitis. She was given Levaquin and later clindamycin without significant improvement. She is now admitted for IV antibiotic therapy. A sonogram was performed and showed fluid outside the left tissue communications superintendent. She denies any wound drainage. No associated fever or chills. PAST MEDICAL HISTORY: Positive for left breast invasive ductal carcinoma with axillary lymph node involvement, asthma, rheumatoid arthritis. PAST SURGICAL HISTORY: Status post bilateral breast augmentation in 1995. ALLERGIES: PENICILLIN (throat swelling) and LATEX. MEDICATIONS: Benadryl, Pepcid, Imodium, Zofran. SOCIAL HISTORY: Former smoker. SYSTEMS REVIEW: Neurologic: No loss of consciousness, seizure activity, focal weakness. Cardiac: Negative chest pain or palpitations. Respiratory: Negative cough or sputum production. Gastrointestinal: Negative vomiting or diarrhea. Genitourinary: Negative for urinary tract infection. LABORATORY DATA: White count 3.9; neutrophils 40, lymphocytes 46, monocytes 6, eosinophils 6; hematocrit 34.6; platelet count 221. BUN 17, creatinine 0.8. Liver enzymes normal. PHYSICAL EXAMINATION: General: Patient is awake and alert, in no acute distress. Vital Signs: Temperature 98.8; blood pressure 117/75; pulse 82, regular; respirations 18 per minute. HEENT: Sclerae are anicteric. Heart: Sounds S1, S2. Lungs: Clear. Breasts: There is ill-defined erythema present on the right inner upper and lower quadrants as well as the left lower quadrant of the breast. The surgical wound, left breast, with Steri-Strips in place. No drainage is noted. Abdomen: Soft and nontender. Extremities: Negative for edema. IMPRESSION: 1. Cellulitis. 2. PENICILLIN allergy. 3. Left breast invasive ductal carcinoma. Continue empiric vancomycin. Patient had developed a "red man syndrome" secondary to the vancomycin with erythema and flushing of the head and neck. Benadryl was ordered. We will continue vancomycin with Benadryl premedication pending cultures. Surgical followup. Thank you for the kind referral. LANDRY BARNES M.D. SAMIR/[id number]
[2017-09-23 12:27] LABS: BASO % 0.6 % (0-2.0); EOS % 6.6 % (0-4.5); HEMATOCRIT 34.8 % (32.4-45.2); HEMOGLOBIN 12.1 GM/dl (10.7-15.3); LYMPH % 39.4 % (8-40); MCHC 34.9 g/dl (32.0-36.0); MEAN CELL VOLUME 94.6 fl (80-96); MEAN PLT VOLUME 7.3 fl (7.5-11.1); MONO % 7.8 % (3.8-10.2); NEUT % 45.6 % (42.8-82.8); PLATELET COUNT 207 K/MM3 (134-434); RBC 3.68 M/mm3 (3.60-5.2); RDW 12.2 % (11.6-15.6); WHITE BLOOD COUNT 3.9 K/mm3 (4.0-10.8)
[2017-09-23 12:39] LABS: ANION GAP 3 (8-16); BLOOD UREA NITROGEN 16 mg/dl (7-18); CHLORIDE 106 mmol/L (98-107); CO2 28 mmol/L (22-28); CREATININE 0.8 mg/dl (0.6-1.3); GLUCOSE,RANDOM 101 mg/dl (74-106); SODIUM 137 mmol/L (136-145)
--- NOTE | 2017-09-23 12:40 | PN ---
Progress Note (short form) - Note Progress Note: Pt well known during reconstruction had sutures out last week with Dr. King....developed loki/redness over weekend and given po Levaquin Admitted yesterday to r/o infection. Now on Vanco,no fluid to speak of and no real improvement in quality of her feeling. This may be low grade but because she needs to start RT beest to treat aggressively Shape and size good. Will follow in 48 hrs and prob dc.
[2017-09-24] MEDS: diphenhydrAMINE HCL 25 MG CAPSULE (FP) PO SCH ×2 (01:33→14:17)
[2017-09-24] MEDS: VANCOMYCIN 1 GRAM (PRE-DOCKED) 1,000 MG/250 ML BAG IVPB SCH ×2 (02:08→14:53)
--- NOTE | 2017-09-24 08:40 | PN ---
Progress Note, Physician Chief Complaint: Left breast cancer S/P bilateral mastectomies 07/2017, left breast revision with bilateral breast cellulitis History of Present Illness: patient is comfortable,no pain, tolerating vancomycin with benadryl, blood cultures no growth after 24 hours with continued incubation, CBC 3.9,ready for discharge tomorrow from surgical standpoint - Current Medication List Current Medications: Active Medications Diphenhydramine HCl (Benadryl -) 25 mg PO BID@0200,1400 [facility] Last Admin: 09/24/17 01:33 Dose: 25 mg Hydromorphone HCl (Dilaudid -) 2 mg PO Q6H PRN PRN Reason: PAIN LEVEL 1-5 Vancomycin HCl (Vancomycin (Pre-Docked)) 1,000 mg in 250 mls @ 166.667 mls/hr IVPB BID@0230,1430 [facility]; Protocol Last Admin: 09/24/17 02:08 Dose: 166.667 mls/hr Lactobacillus Acidophilus (Bacid -) 1 tab PO DAILY [facility] Last Admin: 09/23/17 09:34 Dose: 1 tab Loperamide HCl (Imodium -) 2 mg PO Q8H PRN PRN Reason: DIARRHEA Ondansetron HCl (Zofran -) 4 mg PO Q8H PRN PRN Reason: NAUSEA AND/OR VOMITING - Objective Vital Signs: Vital Signs Temperature 97.5 F L 09/24/17 06:00 Pulse Rate 64 09/24/17 06:00 Respiratory Rate 18 09/24/17 06:00 Blood Pressure 124/72 09/24/17 06:00 O2 Sat by Pulse Oximetry (%) 100 09/24/17 06:00 Constitutional: Yes: No Distress Breast(s): Yes: Other (Bilateral incisions intact, decrease redness and petichiae bilaterallly no discharge or pain on palpation) Labs: CBC, BMP 09/23/17 12:25 09/23/17 12:25 Problem List - Problems (1) Cellulitis of left breast Code(s): N61.0 - MASTITIS WITHOUT ABSCESS Assessment/Plan continue IV vanvomycin with benadryl dilaudid prn pain blood cultures currently no growth will follow results ready for discharge tomorrow from surgical standpoint
[2017-09-24] MEDS: LACTOBACILLUS ACIDOPHILUS 1 TABLET PO SCH (09:56)
--- NOTE | 2017-09-24 10:07 | PN ---
Progress Note, Physician History of Present Illness: Feeling better No c/o breast pain No c/o fever/ chills Tolerated vancomycin after benadryl premedication Afebrile Leukopenic - Current Medication List Current Medications: Active Medications Diphenhydramine HCl (Benadryl -) 25 mg PO BID@0200,1400 [facility] Last Admin: 09/24/17 01:33 Dose: 25 mg Hydromorphone HCl (Dilaudid -) 2 mg PO Q6H PRN PRN Reason: PAIN LEVEL 1-5 Vancomycin HCl (Vancomycin (Pre-Docked)) 1,000 mg in 250 mls @ 166.667 mls/hr IVPB BID@0230,1430 [facility]; Protocol Last Admin: 09/24/17 02:08 Dose: 166.667 mls/hr Lactobacillus Acidophilus (Bacid -) 1 tab PO DAILY [facility] Last Admin: 09/24/17 09:56 Dose: 1 tab Loperamide HCl (Imodium -) 2 mg PO Q8H PRN PRN Reason: DIARRHEA Ondansetron HCl (Zofran -) 4 mg PO Q8H PRN PRN Reason: NAUSEA AND/OR VOMITING - Objective Vital Signs: Vital Signs Temperature 97.5 F L 09/24/17 06:00 Pulse Rate 64 09/24/17 06:00 Respiratory Rate 18 09/24/17 06:00 Blood Pressure 124/72 09/24/17 06:00 O2 Sat by Pulse Oximetry (%) 100 09/24/17 06:00 Constitutional: Yes: No Distress Eyes: Yes: Conjunctiva Clear Cardiovascular: Yes: Regular Rate and Rhythm, S1, S2 Respiratory: Yes: CTA Bilaterally Gastrointestinal: Yes: Normal Bowel Sounds, Soft. No: Tenderness Breast(s): Yes: Other (minimal residual erythema L lower breast) Edema: No Labs: CBC, BMP 09/23/17 12:25 09/23/17 12:25 Assessment/Plan Breast cellulitis improved PCN allergy S/P " red man syndrome" secondary to vancomycin Continue vancomycin with benadryl premedication ? po Bactrim next 24hr
[2017-09-25] MEDS: diphenhydrAMINE HCL 25 MG CAPSULE (FP) PO SCH (01:55)
[2017-09-25] MEDS: VANCOMYCIN 1 GRAM (PRE-DOCKED) 1,000 MG/250 ML BAG IVPB SCH (02:30)
[2017-09-25 06:53] VITALS: BP 104/60; PULSE 72; TEMP 97.7
--- NOTE | 2017-09-25 09:12 | PN ---
Progress Note, Physician Chief Complaint: Cellulitis of chest flaps HD#4 History of Present Illness: Patient was seen at the bedside with Dr. Deng and reports no chest pain, fever or chills. Patient denies SOB as well. - Current Medication List Current Medications: Active Medications Diphenhydramine HCl (Benadryl -) 25 mg PO BID@0200,1400 [facility] Last Admin: 09/25/17 01:55 Dose: 25 mg Hydromorphone HCl (Dilaudid -) 2 mg PO Q6H PRN PRN Reason: PAIN LEVEL 1-5 Vancomycin HCl (Vancomycin (Pre-Docked)) 1,000 mg in 250 mls @ 166.667 mls/hr IVPB BID@0230,1430 [facility]; Protocol Last Admin: 09/25/17 02:30 Dose: 166.667 mls/hr Lactobacillus Acidophilus (Bacid -) 1 tab PO DAILY [facility] Last Admin: 09/24/17 09:56 Dose: 1 tab Loperamide HCl (Imodium -) 2 mg PO Q8H PRN PRN Reason: DIARRHEA Ondansetron HCl (Zofran -) 4 mg PO Q8H PRN PRN Reason: NAUSEA AND/OR VOMITING - Objective Vital Signs: Vital Signs Temperature 97.7 F 09/25/17 06:52 Pulse Rate 72 09/25/17 06:52 Respiratory Rate 18 09/25/17 06:52 Blood Pressure 104/60 09/25/17 06:52 O2 Sat by Pulse Oximetry (%) 100 09/25/17 06:52 Constitutional: Yes: Well Nourished, Calm Breast(s): Yes: Other (Bilateral flaps with good color. No erythema or discharge noted. Well healed incisions.) Labs: CBC, BMP 09/23/17 12:25 09/23/17 12:25 Problem List - Problems (1) Breast cancer, left Code(s): C50.912 - MALIGNANT NEOPLASM OF UNSPECIFIED SITE OF LEFT FEMALE BREAST Qualifiers: Breast location: upper outer quadrant of breast Patient sex: female (2) Cellulitis of left breast Code(s): N61.0 - MASTITIS WITHOUT ABSCESS Assessment/Plan Assessment/Plan: Cellulitis of chest has resolved -plan to discharge today on po Bactrim DS x 7 days -patient to followup with Dr. Lo and Dr. Rosales next week -patient instructed to go to the [facility] if she notices recurrent erythema, fevers or chills.
[2017-09-25] MEDS: LACTOBACILLUS ACIDOPHILUS 1 TABLET PO SCH (09:53)
--- NOTE | 2017-09-25 09:58 | PN ---
Progress Note, Physician History of Present Illness: No c/o breast pain No c/o fever/ chills Tolerated vancomycin after benadryl premedication Afebrile BC (-) - Current Medication List Current Medications: Active Medications Diphenhydramine HCl (Benadryl -) 25 mg PO BID@0200,1400 [facility] Last Admin: 09/25/17 01:55 Dose: 25 mg Hydromorphone HCl (Dilaudid -) 2 mg PO Q6H PRN PRN Reason: PAIN LEVEL 1-5 Vancomycin HCl (Vancomycin (Pre-Docked)) 1,000 mg in 250 mls @ 166.667 mls/hr IVPB BID@0230,1430 [facility]; Protocol Last Admin: 09/25/17 02:30 Dose: 166.667 mls/hr Lactobacillus Acidophilus (Bacid -) 1 tab PO DAILY [facility] Last Admin: 09/25/17 09:53 Dose: 1 tab Loperamide HCl (Imodium -) 2 mg PO Q8H PRN PRN Reason: DIARRHEA Ondansetron HCl (Zofran -) 4 mg PO Q8H PRN PRN Reason: NAUSEA AND/OR VOMITING - Objective Vital Signs: Vital Signs Temperature 97.7 F 09/25/17 06:52 Pulse Rate 72 09/25/17 06:52 Respiratory Rate 18 09/25/17 06:52 Blood Pressure 104/60 09/25/17 06:52 O2 Sat by Pulse Oximetry (%) 100 09/25/17 06:52 Constitutional: Yes: No Distress Cardiovascular: Yes: Regular Rate and Rhythm, S1, S2 Respiratory: Yes: CTA Bilaterally Gastrointestinal: Yes: Normal Bowel Sounds, Soft Breast(s): Yes: Other (Bilateral breast erythema resolved) Edema: No Labs: CBC, BMP 09/23/17 12:25 09/23/17 12:25 Assessment/Plan Breast cellulitis resolved PCN allergy S/P " red man syndrome" secondary to vancomycin Substitute po Bactrim DS bid x 7d Outpatient surgical follow up
== END 2017-09-25 11:10 | disposition home or self-care (01) | DRG 920 ==
LOC: FM/S 12:04
PROVIDERS: ADMIT Surgery Surgical Oncology; ATTEND Surgery Surgical Oncology
DX: L76.82 Other postprocedural complications of skin and subcutaneous tissue (principal); C79.89 Secondary malignant neoplasm of other specified sites; N61.0 Mastitis without abscess; C50.412 Malignant neoplasm of upper-outer quadrant of left female breast; Z88.0 Allergy status to penicillin; Z85.3 Personal history of malignant neoplasm of breast; J45.909 Unspecified asthma, uncomplicated; Z98.890 Other specified postprocedural states; M06.9 Rheumatoid arthritis, unspecified; E80.4 Gilbert syndrome; Q92.9 Trisomy and partial trisomy of autosomes, unspecified; Z87.891 Personal history of nicotine dependence; Z80.3 Family history of malignant neoplasm of breast; Z80.7 Family history of other malignant neoplasms of lymphoid, hematopoietic and related tissues; Y84.8 Other medical procedures as the cause of abnormal reaction of the patient, or of later complication, without mention of misadventure at the time of the procedure
CPT/HCPCS: 36415; 76642-TC-50; 80048; 80053; 85025; 87040; 87086

== ENCOUNTER 2018-05-21 08:31 | Day surgery (SDC) | payer BC ==
[2018-05-19 18:21] VITALS: BMI 30.4
[2018-05-21] MEDS ORDERED: ROCURONIUM BROMIDE 50 MG/5 ML VIAL ONE (09:25)
[2018-05-21] MEDS ORDERED: MIDAZOLAM HCL 2 MG/2 ML SINGLE DOSE VIAL ONE (09:25)
[2018-05-21] MEDS ORDERED: ceFAZolin SODIUM 1 GM VIAL ONE ×2 (09:50→10:13)
[2018-05-21] MEDS ORDERED: LIDOCAINE 1%/EPI 1:100000 (20 ML MULTI DOSE VIAL) ONE (09:51)
[2018-05-21] MEDS ORDERED: GENTAMICIN SO4 80 MG/2 ML VIAL ONE (09:51)
[2018-05-21] MEDS ORDERED: EPINEPHrine/PF 1 MG/1 ML (1:1,000) AMPULE ONE (09:51)
[2018-05-21] MEDS ORDERED: LIDOCAINE HCL 1% PRESERVATIVE FREE - 30ML VIAL ONE (09:52)
[2018-05-21] MEDS ORDERED: PROPOFOL 20 ML ONE ×10 (10:02→12:11)
[2018-05-21] MEDS ORDERED: DEXMEDETOMIDINE HCL 200 MCG/2 ML IVPB ONE (10:06)
[2018-05-21] MEDS ORDERED: SCOPOLAMINE HYDROBROMIDE 1 PATCH PATCH.TD72 ONE (10:06)
[2018-05-21] MEDS ORDERED: KETAMINE HCL 200 MG/20 ML VIAL ONE (10:12)
[2018-05-21] MEDS ORDERED: DEXAMETHASONE SOD PHOSPHATE 4 MG/1 ML VIAL ONE (10:13)
[2018-05-21] MEDS ORDERED: ONDANSETRON 4 MG/2 ML VIAL ONE ×2 (10:13→13:16)
[2018-05-21] MEDS ORDERED: LIDOCAINE HCL/PF 2% SDV 5ML VIAL ONE (10:13)
[2018-05-21] MEDS ORDERED: SODIUM CHLORIDE 0.9% P/F 10 ML VIAL IJ ONE (10:13)
[2018-05-21] MEDS ORDERED: LIDOCAINE 1%/EPI 1:100000 (50 ML MULTI DOSE VIAL) INF ONE (10:55)
[2018-05-21] MEDS ORDERED: GLYCOPYRROLATE 0.2 MG/1 ML VIAL ONE (11:32)
[2018-05-21] MEDS ORDERED: NEOSTIGMINE METHYLSULFATE 0.5 MG/ML - 10 ML MDV ONE (11:32)
[2018-05-21] MEDS ORDERED: ONDANSETRON 4 MG/2 ML VIAL IVPUSH PRN (11:41)
[2018-05-21] MEDS ORDERED: oxyCODONE HCL 5 MG TABLET PO PRN ×2 (11:41)
[2018-05-21] MEDS ORDERED: LACTATED RINGERS SOLUTION 1,000 ML IV SCH (11:45)
[2018-05-21] MEDS ORDERED: KETOROLAC TROMETHAMINE 30 MG/1 ML VIAL ONE (11:50)
--- NOTE | 2018-05-21 13:21 | OP ---
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 Post-Operative Diagnosis: Same as Pre-op Surgeon: Tera Rosales Brick Unloader Tender: Janet Zuniga Anesthesiologist/CORK FLOOR INSTALLER: Humberto Hebert Anesthesia: General, Local Specimens Removed: b/l tissue expanders Estimated Blood Loss (mls): 20 Fluid Volume Replaced (mls): 900 Operative Report Dictated: Yes
--- NOTE | 2018-05-21 13:23 | SURG ---
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 I was present for the entirety of the operative procedure. For further detail, please refer to operative report. Visit type - Case Type Case Type: Scheduled - Emergency Emergency Visit: No - New patient This patient is new to me today: Yes Date on this admission: 05/21/18
[2018-05-21] MEDS ORDERED: oxyCODONE HCL 5 MG TABLET ONE (14:12)
[2018-05-21 14:32] VITALS: TEMP 98.1
[2018-05-21 15:24] VITALS: BP 109/68; PULSE 67
--- NOTE | 2018-05-22 07:22 | OP ---
DATE OF OPERATION: 05/21/2018 PREOPERATIVE DIAGNOSIS: History of left breast upper outer quadrant breast cancer status post bilateral mastectomies and chemotherapy. POSTOPERATIVE DIAGNOSIS: History of left breast upper outer quadrant breast cancer status post bilateral mastectomies and chemotherapy. PROCEDURE: Removal of right-sided subclavian vein single-lumen portacath. ANESTHESIA: General laryngeal mask airway anesthesia. PRIMARY SURGEON: Jesus Lo MD COMPLICATIONS: There were no complications. DESCRIPTION OF PROCEDURE: Briefly, the patient is a 42-year-old G-5, P-2 white female with a history of a left breast cancer, which was diagnosed back in January of 2017. This developed over an augmentation implant. She had a few separate foci of cancer in the left breast and was found to have no positive disease, which was ER positive, LA negative, and HER2 3+. She underwent neoadjuvant chemotherapy and eventually underwent bilateral total mastectomies through a reduction pattern incision on July 15, 2017, with bilateral developer designer reconstructions. The patient has been doing well and continues on Herceptin and Perjeta through her right-sided portacath. The patient then required exchange of the expanders for implants, had finished chemotherapy and now presents for removal of her right-sided portacath at the same time as her exchange of expanders for implants. The patient was brought in through ambulatory surgery on May 21, 2018. She was marked preoperatively by the plastic surgeons for the developer designer exchange for implants. Consent was obtained, and site verification was made. She was brought into the operating room and laid on the OR table in the supine position. Venodynes were placed on the lower extremities prior to induction. She received general laryngeal mask airway anesthesia. Both breasts were sterilely prepped and draped in the usual fashion with the abdominal wall prepped as well for fat grafting, which was being performed by the plastic surgeon. The breasts were sterilely prepped and draped in the usual fashion. The upper right chest wall was approached, and the previous portacath incision was used, and the portacath was completely removed from the infraclavicular pocket intact and sent to Pathology. The capsule was excised, and hemostasis was achieved. The incision was then closed using some deep 3-0 Vicryl suture, and the skin was closed using interrupted 3-0 deep dermal Vicryl suture and a running 4-0 subcuticular Biosyn suture. Steri-Strips were placed over the wound. The patient tolerated the procedure well without difficulty and estimated blood loss was minimal. The rest of the procedure will be dictated by Plastic Surgery with the exchange of the expanders for implants and fat grafting. The patient will be discharged home the same day once discharge criteria are met and should follow up in the office for wound evaluation in about 1 week. All sponge and needle counts were correct at this point in the case. JESUS LO M.D. [id number]
--- NOTE | 2018-05-22 10:00 | OP ---
DATE OF OPERATION: 05/21/2018 SURGEON: Jesus Rosales MD ACUTE DIALYSIS REGISTERED NURSE SURGEON: Janet Zuniga PA-C PREOPERATIVE DIAGNOSES: 1. 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 This is a combined dictation with Dr. Jesus Lo, who removed the right chest wall port. 2. Asymmetry of reconstructed chest wall. 3. Mechanical complication of breast implant. POSTOPERATIVE DIAGNOSES: 1. 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 This is a combined dictation with Dr. Jesus Lo, who removed the right chest wall port. 2. Asymmetry of reconstructed chest wall. 3. Mechanical complication of breast implant. OPERATIVE PROCEDURE: 1. Right breast reconstruction utilizing other technique. 2. Left breast reconstruction utilizing other technique. 3. Capsulectomy, removal of right breast implant and replacement. 4. Capsulectomy, removal and replacement of the left breast implant. OPERATIVE INDICATIONS: The patient is a young woman who had been diagnosed with a breast cancer which was severe in nature, requiring chemotherapy and radiation therapy. The patient now presents with gross asymmetry of the chest wall, need for symmetry, and removal of the Port-A-Cath on the right chest wall by Dr. Jesus Lo. A combined procedure was carried out to facilitate these procedures. All questions were asked and answered. Patient agreed to the planned procedure. Was marked in the standing position preoperatively with the patient's and 's knowledge. OPERATIVE PROCEDURE IN DETAIL: Patient was taken to the operating room, and after induction of general anesthesia in the usual fashion, attention was turned to the chest wall and abdomen. The entire chest wall including the upper chest wall for port removal was prepped with ChloraPrep solution over its entire extent, as well as all the way down to the pubis and flanks. At this point sterile drapes were placed in usual fashion, and attention was turned to timeout. After prepping and draping and timeout, attention was turned to the mastectomy scars. These were injected with 1% local lidocaine anesthesia with 1:100,000 epinephrine, and then incisions were planned in the flank area in order to harvest tissue. These incisions were injected, and a dilute solution injected for hemostasis. At this point, Dr. Jesus Lo performed removal of the chest wall Port-A-Cath from chemotherapy and will be dictated under separate cover. At this point, attention was turned back to the right chest wall mastectomy scar. Incision was made down through skin and subcutaneous tissue in the lateral portion of the chest wall scar, down through the skin into the subcutaneous tissue and down to the underlying capsule. The capsule was then opened and the textured device was removed. This showed some minor amounts of fluid around the implant, but the capsule itself required revision. Portions of the capsule were then removed and the superior portion of the breast itself and sent for pathologic diagnosis. Also the lateral portion of the capsule required capsulorrhaphy. After 1% local lidocaine anesthesia, a No. 1 V-Loc suture was used to perform capsulorrhaphy in the lateral gutter of the right chest wall. In 3-layer fashion was tacked down to a new position in order to centralize the implant and prevent malposition which had previously occurred. Once this was accomplished, triple antibiotic solution, hemostasis was meticulously obtained throughout the pocket, and then attention was turned to the left chest wall. After incising the chest wall mastectomy scar in similar fashion, attention was turned to the abdomen. Incisions were made in the abdominal wall down through the skin into the deep tissue over the rectus and abdominus fascia, as well as the external oblique fascia laterally. Tissue was then harvested from both sides of the abdominal wall, connecting to the midline. This tissue was then transferred to the back table, washed, cleansed, and prepared for reconstruction. After harvest of the tissue, the donor sites were closed with interrupted running sutures, and attention was turned back to the chest wall. The exact same procedure was carried out, symmetrically removing the implant device on the left chest wall. This was the radiated side, so careful attention was paid to tissue handling of the skin and subcutaneous tissue, which appeared to be indurated from the radiation effect. At this point an implant was chosen for the patient. As per the patient's wishes, a [employer] SoftTouch implant, style SSX, 650-mL volume, was placed into the right chest wall pocket using the Allred funnel, and then the left chest wall pocket using the Allred funnel. At this point good symmetry was seen, although the status required transfer. Tissue was then transferred from the back table to the right breast in the superomedial and central portions of the right breast and to the lateral, central, medial, and inferior portions of the right breast. Good shape and contour was then seen again in the sitting position. The wounds were closed symmetrically with 2-0 Vicryl suture on the deep tissue fascia, 3-0 Biosyn in a deep dermal fashion, and a subcuticular suture with V-Loc on the left breast of the radiated side and 4-0 Biosyn on the right side. All wounds were dressed sterilely with Dermabond and Steri-Strip dressings, including the chest wall Port-A-Cath. The patient tolerated the procedure well. She was awakened, extubated, and transferred to the recovery room in a Surgi-Bra with fluff dressing. JESUS ROSALES M.D. [id number]
--- NOTE | 2018-05-25 14:11 | PATH ---
Surgical Pathology Report Patient Name: MARSHA MALCOLM [facility]. Rec. #: [id number] /Age/Gender: 1975 (Age: 42) / F Account: [id number] Location: [facility] Taken: 05/21/2018 Received: 05/21/2018 Reported: 05/25/2018 Physicians: Tera Rosales Specimen(s) Received A: PORTACATH B: BILATERAL BREAST IMPLANTS C: LEFT BREAST CAPSULE D: LEFT BREAST CAPSULE Clinical History History of left breast cancer status post bilateral mastectomies with expanders Final Diagnosis A. PORT-A-CATH, REMOVAL: PORT-A-CATH, DESCRIBED (GROSS EXAMINATION ONLY). B. BILATERAL BREAST IMPLANTS, REMOVAL: IMPLANTS, DESCRIBED (GROSS EXAMINATION ONLY). C. CAPSULE, LEFT BREAST, CAPSULECTOMY: FIBROUS CAPSULE SHOWING MODERATE ACUTE AND CHRONIC INFLAMMATION WITH HISTIOCYTIC/FOREIGN BODY GIANT CELL REACTION. D. CAPSULE, RIGHT BREAST, CAPSULECTOMY: FIBROUS CAPSULE. Electronically Signed Janet Gaffney M.D. Gross Description A. Received fresh labeled "Port-A-Cath," is a 3.2 cm in diameter x 1.4 cm in depth a white, circular device, consistent with a fe cath. The Port-A-Cath displays a 19 cm in length portion of blue tubing extending from one aspect. No soft tissue is present. No sections are submitted, gross only. B. Received fresh labeled "bilateral breast implants," are 2 courtney, rubbery, intact breast implants averaging 14.0 x 11.5 x 6.0 cm. No soft tissue is present. No sections are submitted, gross only. C. Received in formalin labeled "left breast capsule," is a 2.5 x 2.0 x 0.4 cm aggregate of courtney-brown portions of fibrous capsule. Purchasing Contracting Clerk sections are submitted in one cassette. D. Received in formalin labeled "right breast capsule," is a 2.5 x 0.8 x 0.3 cm courtney-pink portion of fibrous capsule. The specimen is sectioned and entirely submitted in one cassette. 05/22/2018 saudi05/22/2018
== END 2018-05-21 15:26 | disposition home or self-care (01) ==
LOC: FASU 08:31
PROVIDERS: ATTEND Plastic Surgery
PROC: 0HPT0JZ Removal of Synthetic Substitute from Right Breast, Open Approach (ICD-10-PCS; 2018-05-21)
PROC: 0HRV0JZ Replacement of Bilateral Breast with Synthetic Substitute, Open Approach (ICD-10-PCS; 2018-05-21)
PROC: 05H533Z Insertion of Infusion Device into Right Subclavian Vein, Percutaneous Approach (ICD-10-PCS; principal; 2018-05-21 10:45)
PROC: 0HRV07Z Replacement of Bilateral Breast with Autologous Tissue Substitute, Open Approach (ICD-10-PCS; 2018-05-21 10:45)
PROC: 0HPU0JZ Removal of Synthetic Substitute from Left Breast, Open Approach (ICD-10-PCS; 2018-05-21 10:45)
DX: Z90.13 Acquired absence of bilateral breasts and nipples (principal); M95.4 Acquired deformity of chest and rib; Z85.3 Personal history of malignant neoplasm of breast; Z92.21 Personal history of antineoplastic chemotherapy; Z92.3 Personal history of irradiation; N65.1 Disproportion of reconstructed breast; T85.41XA Breakdown (mechanical) of breast prosthesis and implant, initial encounter; Y83.8 Other surgical procedures as the cause of abnormal reaction of the patient, or of later complication, without mention of misadventure at the time of the procedure; Y92.89 Other specified places as the place of occurrence of the external cause
CPT/HCPCS: 84703; 88300-TC; 88304-TC; 94760